=== PATIENT | male | born 1950 | race Caucasian/White ===

== ENCOUNTER → 2017-01-26 | Outpatient (CLI) | payer MEDICARE ==
[~2017-01-26] MED LIST: ASPI-515 PO; ISOS30TA8 PO; METO25TA35 PO; PRAS10TA4 PO; ROSU5TAB PO; TERA2CAP3 PO
== END | disposition home or self-care (01) ==
LOC: CVU 11:24
PROVIDERS: ATTEND Physician Assistant Medical
DX: I08.3 Combined rheumatic disorders of mitral, aortic and tricuspid valves (principal); I65.23 Occlusion and stenosis of bilateral carotid arteries; E78.2 Mixed hyperlipidemia; Z95.5 Presence of coronary angioplasty implant and graft
CPT/HCPCS: 93306; 93880

== ENCOUNTER → 2017-02-14 | Outpatient (CLI) | payer MEDICARE ==
[~2017-02-14] MED LIST changes: +OMNIPAQUE 350 MG/ML, 150 ML BOTTLE ONE
== END | disposition home or self-care (01) ==
LOC: CFH 10:17
PROVIDERS: ATTEND Physician Assistant Surgical
DX: N20.0 Calculus of kidney (principal); N28.1 Cyst of kidney, acquired; M89.9 Disorder of bone, unspecified; N40.1 Benign prostatic hyperplasia with lower urinary tract symptoms
CPT/HCPCS: 74178; 82565; Q9967

== ENCOUNTER → 2018-11-11 | Outpatient (CLI) | payer MEDICARE ==
[~2018-11-11] MED LIST changes: +ASPI-496 PO; +CLOP75TA52 PO; +LISI-167 PO; +METO25TA91 PO; -OMNIPAQUE 350 MG/ML, 150 ML BOTTLE ONE; +ROSU10TA PO
== END | disposition home or self-care (01) ==
LOC: STAR 07:33
PROVIDERS: ATTEND Surgery
DX: Z01.818 Encounter for other preprocedural examination (principal); M47.814 Spondylosis without myelopathy or radiculopathy, thoracic region; I10 Essential (primary) hypertension; I44.0 Atrioventricular block, first degree; R01.1 Cardiac murmur, unspecified
CPT/HCPCS: 71046; 93005

== ENCOUNTER 2019-03-19 08:50 | Outpatient (CLI) | payer MEDICARE ==
[~2019-03-19 08:50] MED LIST changes: -ROSU10TA PO; +ROSU10TA2 PO; +TERA1CAP3 PO
== END 2019-03-19 23:59 | disposition home or self-care (01) ==
LOC: CFH 08:50
PROVIDERS: ATTEND Physician Assistant Medical
DX: I10 Essential (primary) hypertension (principal); I25.10 Atherosclerotic heart disease of native coronary artery without angina pectoris
CPT/HCPCS: 78452; 93017; A9502

== ENCOUNTER → 2019-11-17 | Outpatient (CLI) | payer MEDICARE | END | disposition home or self-care (01) | LOC: CVU 12:42 | PROVIDERS: ATTEND Internal Medicine Cardiovascular Disease | DX: I65.23 Occlusion and stenosis of bilateral carotid arteries (principal); I08.8 Other rheumatic multiple valve diseases; I10 Essential (primary) hypertension; I25.10 Atherosclerotic heart disease of native coronary artery without angina pectoris | CPT/HCPCS: 93306; 93356; 93880 ==